=== PATIENT | female | born 1980 | race Caucasian/White ===

== ENCOUNTER 2019-08-22 12:43 | Emergency (ER) | payer MEDICAID, MEDICARE, OTHER, SELFPAY ==
[~2019-08-22] VITALS: Ht 162.6 cm; Wt 76.1 kg
[2019-08-22 13:16] LABS: BASOPHILS # (AUTO) 0.02 x10^3/uL (0-0.1); BASOPHILS % (AUTO) 0 % (0-1); EOSINOPHILS # (AUTO) 0.12 x10^3/uL (0-0.4); EOSINOPHILS % (AUTO) 2 % (1-7); LYMPHOCYTES # (AUTO) 2.42 x10^3/uL (1-3.4); LYMPHOCYTES % (AUTO) 41 % (22-44); MD NO; MEAN CORPUSCULAR HEMOGLOBIN 29.4 pg (27.0-34.8); MEAN CORPUSCULAR HGB CONC 33.7 g/dL (32.4-35.8); MEAN CORPUSCULAR VOLUME 87.1 fL (80-100); MEAN PLATELET VOLUME 7.1 fL (7.4-10.4); MONOCYTES # (AUTO) 0.33 x10^3/uL (0.2-0.8); MONOCYTES % (AUTO) 6 % (2-9); NEUTROPHILS # (AUTO) 3.06 x10^3/uL (1.8-6.8); NEUTROPHILS % (AUTO) 51 % (42-75); PLATELET COUNT 354 x10^3/uL (130-400); RED BLOOD COUNT 4.64 x10^6/uL (3.82-5.3); RED CELL DISTRIBUTION WIDTH 14.9 % (9.6-15.2)
[2019-08-22 13:23] LABS: ALANINE AMINOTRANSFERASE 24 U/L (12-78); ALBUMIN 3.4 g/dL (3.4-5.0); ANION GAP 7 mmol/L (5-15); CHLORIDE 108 mmol/L (98-107); CREATININE 0.84 mg/dL (0.55-1.02)
[2019-08-22 13:26] LABS: ALKALINE PHOSPHATASE 93 U/L (45-117); BILIRUBIN,TOTAL 0.2 mg/dL (0.2-1.0); TOTAL PROTEIN 7.5 g/dL (6.4-8.2)
--- NOTE | 2019-08-22 16:50 | NUR ---
LEASE OUT WORKER: PT TO ROOM FROM [facility]
[2019-08-22] MEDS ORDERED: ALBUTEROL/IPRATROPIUM 2.5MG/0.5MG, 3 ML NPPB SCH (17:30)
[2019-08-22] MEDS ORDERED: ALBUTEROL/IPRATROPIUM 2.5MG/0.5MG, 3 ML ONE (17:39)
[2019-08-22 17:41] VITALS: BP 133/83
--- NOTE | 2019-08-22 17:46 | NUR ---
BREAK RN: THIS IS A 39 YEAR OLD FEMALE WHO C/O OF LT EAR INFECTION, COUGH X6 WKS, RECENT PNA WITH ABX- SENT BY [facility] AFTER +CXR TODAY
--- NOTE | 2019-08-22 19:00 | NUR ---
CXR CONFIRMED PNA/COUGH/ SUBJECTIVE SOB DESPITE COURSES OF PO LEVAQUIN/DOXYCYCLINE- PROVIDER WOULD LIKE TO ADMIT FOR IV ABX HOWEVER PATIENT HAS NO OTHER FAMILY/FRIEND TO WATCH HER 15 YEAR OLD DAUGHTER AFTER DISCUSSION WITH PROVIDER-PLAN TO SEND HOME WITH DOUBLE THERAPY AND RETURN ONCE SANITATION TRUCK CLEANER ARRANGED
[2019-08-22] MEDS ORDERED: SODIUM CHLORIDE FLUSH 10ML SYR IVF ONE (19:30)
[2019-08-22] MEDS ORDERED: CEFTRIAXONE PMX 1GM/50ML 50 ML IVPB ONE (19:30)
[2019-08-22] MEDS ORDERED: AZITHROMYCIN 500 MG in SODIUM CHLORIDE 0.9% 250 ML IVPB ONE (19:30)
[2019-08-22] MEDS ORDERED: SODIUM CHLORIDE FLUSH 10ML SYR IVF PRN (19:30)
== END 2019-08-22 19:51 | disposition home or self-care (01) ==
LOC: ED 19:17
DX: J15.9 Unspecified bacterial pneumonia (principal); J98.01 Acute bronchospasm; J96.01 Acute respiratory failure with hypoxia; R00.0 Tachycardia, unspecified
CPT/HCPCS: 36415; 80053; 83605; 85025; 87040; 94640; 99283; J7512

== ENCOUNTER 2019-09-06 12:00 | Emergency (ER) | payer MEDICARE, MEDICAID ==
[~2019-09-06] VITALS: Ht 162.6 cm; Wt 77.3 kg
--- NOTE | 2019-09-06 12:23 | NUR ---
PT CAME IN CO N/V/FEVERS/ARIZA/BLURRED VISION. 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 WAS DIAGNOSED WITH PNEUMONIA A COUPLE WEEKS AGO AND FINISHED COURSE OF ABX. BLANKET PROVIDED.
[2019-09-06 12:26] VITALS: BP 154/98
--- NOTE | 2019-09-06 12:26 | NUR ---
MD BEDSIDE AT THIS TIME
[2019-09-06] MEDS ORDERED: MECLIZINE CHEWABLE 25 MG TAB PO ONE (13:00)
[2019-09-06] MEDS ORDERED: MECLIZINE CHEWABLE 25 MG TAB ONE (13:33)
== END 2019-09-06 13:55 | disposition home or self-care (01) ==
LOC: ED 12:20
DX: H83.01 Labyrinthitis, right ear (principal); R51 Headache; R11.2 Nausea with vomiting, unspecified; Z87.891 Personal history of nicotine dependence
CPT/HCPCS: 70450; 93005; 99284

== ENCOUNTER → 2019-09-29 | Outpatient (CLI) | payer MEDICARE, MEDICAID | END | disposition home or self-care (01) | LOC: RAD 08:42 | PROVIDERS: ATTEND Nurse Practitioner Family | DX: K46.9 Unspecified abdominal hernia without obstruction or gangrene (principal); N39.0 Urinary tract infection, site not specified; R19.00 Intra-abdominal and pelvic swelling, mass and lump, unspecified site | CPT/HCPCS: 76705 ==

== ENCOUNTER → 2020-02-15 | Outpatient (CLI) | payer MEDICARE, MEDICAID | END | disposition home or self-care (01) | LOC: CFH 13:38 | PROVIDERS: ATTEND Genetic Counselor, MS | DX: Z12.31 Encounter for screening mammogram for malignant neoplasm of breast (principal) | CPT/HCPCS: 77063; 77067 ==

== ENCOUNTER → 2020-11-22 | Outpatient (CLI) | payer MEDICARE | END | disposition home or self-care (01) | LOC: CFH 12:21 | DX: R51.9 Headache, unspecified (principal) | CPT/HCPCS: 70450 ==